=== PATIENT | female | born 2000 | race Caucasian/White ===

== ENCOUNTER 2021-07-31 07:03 | Emergency (ER) | payer OTHER, SELFPAY ==
[2021-07-31 07:17] VITALS: BP 134/77; PULSE 86; RESP 18; TEMP 36.8; O2SAT 100
[2021-07-31 08:38] VITALS: BP 135/80; PULSE 83; RESP 18; O2SAT 100
[2021-07-31 08:50] LABS: Add Urine Microscopic? YES; Appearance Urine Clear (Clear); Bilirubin Urine Negative (Negative); Blood Urine 2+ (Negative); Color Urine Yellow (Yellow); Glucose Urine UA Negative (Negative); Ketones Urine Negative (Negative); Leukocyte Esterase Ur 3+ LEU/UL (Negative); Nitrate Urine Negative (Negative); Protein Urine Negative (Negative); Urobilinogen Urine 0.2 mg/dL (<2.0); pH Urine 6.5 (5.0-9.0)
--- NOTE | 2021-07-31 08:55 | ED.FEMALEGU ---
HPI - Female Genitourinary General Chief complaint: Urogenital-Female Stated complaint: uti symptoms Time Seen by Provider: 07/31/21 07:12 Source: patient Mode of arrival: ambulatory Limitations: no limitations History of Present Illness HPI Narrative: 20-year-old otherwise healthy here with complaints of lower abdominal pain with dysuria since yesterday. She denies any fever or chills. No history of nausea, vomiting. She denies any flank pain. MD elicited complaint: dysuria and UTI Onset (ago): day(s) (1) Severity: moderate Quality of pain: burning and aching Consistency: constant Vaginal discharge: none Vaginal bleeding: none Urinary symptoms: Dysuria Exacerbating factors: urination Relieving factors: none Associated symptoms: denies other symptoms Treatment prior to arrival: none Patient : No Related Data Allergies Allergy/AdvReac Type Severity Reaction Status Date / Time metronidazole [From Flagyl] Allergy Unknown Verified 07/31/21 07:24 Sulfa (Sulfonamide Allergy Unknown Verified 07/31/21 07:24 Antibiotics) Review of Systems Review of Systems: All systems reviewed & are unremarkable except as noted in HPI and below Constitutional: Constitutional: Reports no additional constitutional complaints Eyes: Eyes: Reports no additional eye complaints ENT: Reports system reviewed and no additional complaints, except as documented Cardiovascular: Cardiovascular: Reports no additional cardiovascular complaints Respiratory: Respiratory: Reports no additional respiratory complaints Gastrointestinal: Gastrointestinal: Reports as per HPI Genitourinary: Genitourinary: Reports as per HPI Musculoskeletal: Musculoskeletal: Reports no additional musculoskeletal complaints Integumentary/Breasts: Skin/Breast: Reports system reviewed and no additional complaints, except as docu Neurologic: Reports system reviewed and no additional complaints, except as documented Psychiatric: Psychiatric: Reports no additional psychiatric complaints Exam Narrative: GENERAL: Well-appearing, well-nourished, and in no acute distress. HEAD: Normocephalic, atraumatic. EYES: PERRLA and EOMI. NECK: Supple. CHEST: Clear to auscultation. No respiratory distress. HEART: Regular rate and rhythm. No murmur heard. Normal peripheral pulses. ABDOMEN: Soft, nontender, nondistended, normal active bowel sounds. No CVA tenderness EXTREMITIES: Normal range of motion. No edema. SKIN: Warm, dry, no rash. NEURO: No focal deficits. Alert and oriented x3. PSYCH: Normal mood and affect. Course Course Emergency Course: Inform patient about her lab work. Advised to take antibiotic as prescribed. Follow-up with her primary doctor in the next few days regarding urine cultures Vital Signs Vital signs: Vital Signs Temperature 36.8 C 07/31/21 07:17 Pulse Rate 86 07/31/21 07:17 Respiratory Rate 18 07/31/21 07:17 Blood Pressure 134/77 07/31/21 07:17 Pulse Oximetry 100 07/31/21 07:17 Oxygen Delivery Room Air 07/31/21 07:17 Temperature 36.8 C 07/31/21 07:17 Pulse Rate 83 07/31/21 08:38 Respiratory Rate 18 07/31/21 08:38 Blood Pressure 135/80 07/31/21 08:38 Pulse Oximetry 100 07/31/21 08:38 Oxygen Delivery Room Air 07/31/21 07:17 MDM - Female Genitourinary Lab Data Labs: Lab Results 07/31/21 Range/Units 08:00 Urine Color Yellow (Yellow) Urine Appearance Clear (Clear) Urine pH 6.5 (5.0-9.0) Ur Specific Pace 1.010 (1.001-1.035) Urine Protein Negative (Negative) mg/dL Urine Glucose (UA) Negative (Negative) mg/dL Urine Ketones Negative (Negative) mg/dL Ur Blood (Man) 2+ H (Negative) Urine Nitrate Negative (Negative) Urine Bilirubin Negative (Negative) Urine Urobilinogen 0.2 (<2.0) mg/dL Leukocyte Esterase Rfl 3+ H (Negative) BEN[facility]/UL Discharge Plan Discharge Clinical Impression: Urinary tract infection Patient Disposition:
[2021-07-31 08:56] LABS: Bacteria Urine 2+ /hpf; Mucus Urine Rare /lpf; Squamous Epithelial Cell Urine Occasional /hpf (Few); WBC Clumps Urine Present /HPF; WBC Urine 31-50 /hpf
[2021-07-31 09:06] VITALS: BP 135/80; PULSE 80; RESP 18; O2SAT 100
== END 2021-07-31 09:16 | disposition home or self-care (01) ==
PROVIDERS: Emergency Provider Family Medicine; PCP Internal Medicine
DX: N39.0 Urinary tract infection, site not specified (principal)
CPT/HCPCS: 81001; 87077; 87086; 87186; 99283